=== PATIENT | male | born 1935 | race Hispanic/Latino ===

== ENCOUNTER 2016-03-24 14:28 | Emergency (ER) | payer MEDICARE ==
[~2016-03-24] VITALS: Ht 177.8 cm; Wt 59.0 kg
[2016-03-24 14:30] VITALS: BP 115/48
[2016-03-24] MEDS ORDERED: VITAMIN D400 INTLU ORAL (14:45)
[2016-03-24] MEDS ORDERED: NORCO 5-325 TA1 EAC1 ORAL (14:45)
[2016-03-24] MEDS ORDERED: SPIRONOLACTONE25 MG ORAL (14:45)
[2016-03-24] MEDS ORDERED: COMBIVENT RESPIM4 GM IH (14:45)
[2016-03-24] MEDS ORDERED: LIPITOR40 MG ORAL (14:45)
[2016-03-24] MEDS ORDERED: ASPIR 8181 MG ORAL (14:45)
[2016-03-24] MEDS ORDERED: Albuterol ud Inhalation HHN ONE ×2 (14:45→19:15)
[2016-03-24] MEDS ORDERED: FEROCON CAPSUL1 EACH PO (14:45)
[2016-03-24] MEDS ORDERED: FOLIC ACID1 MG ORAL (14:45)
[2016-03-24] MEDS ORDERED: FUROSEMIDE20 M1 ORAL (14:45)
[2016-03-24] MEDS ORDERED: COREG6.25 MG ORAL (14:45)
[2016-03-24] MEDS ORDERED: PredniSONE 20mg tab ORAL ONE (14:45)
[2016-03-24] MEDS ORDERED: ASCORBIC ACID500 MG ORAL (14:45)
[2016-03-24] MEDS ORDERED: DIGOXIN250 MCG ORAL (14:45)
[2016-03-24] MEDS ORDERED: WARFARIN SODIUM5 MG ORAL (14:45)
[2016-03-24] MEDS ORDERED: Ipratropium 0.02% Inh Soln 2.5ml UD HHN ONE (14:45)
[2016-03-24] MEDS ORDERED: FLONASE ALLERG9.9 ML NS (14:45)
[2016-03-24] MEDS ORDERED: VITAMIN D1000 UNI1 ORAL (14:45)
[2016-03-24] MEDS ORDERED: ALBUTEROL2.5 MG/3 M INH (14:45)
[2016-03-24 15:04] LABS: BASOPHILS % (AUTO) 0.4 % (0.0-2.0); EOSINOPHILS % (AUTO) 0.2 % (0.0-3.0); LYMPHOCYTES % (AUTO) 5.9 % (20.0-45.0); MEAN CORPUSCULAR HEMOGLOBIN 33.7 PG (27.0-31.0); MEAN CORPUSCULAR HGB CONC 32.4 G/DL (32.0-36.0); MEAN CORPUSCULAR VOLUME 104 FL (80-99); MEAN PLATELET VOLUME 8.9 FL (6.5-10.1); MONOCYTES % (AUTO) 11.5 % (1.0-10.0); PLATELET COUNT 207 K/UL (150-450); RED BLOOD COUNT 3.91 M/UL (4.70-6.10); RED CELL DISTRIBUTION WIDTH 11.7 % (11.6-14.8)
[2016-03-24 15:10] VITALS: BP 115/48
[2016-03-24 15:18] LABS: ALANINE AMINOTRANSFERASE 38 U/L (3-41); ALBUMIN/GLOBULIN RATIO 1.3 (1.0-2.7); ANION GAP 8 (5-15); ASPARTATE AMINO TRANSFERASE 28 U/L (5-40); CARBON DIOXIDE 37 mEQ/L (20-30); CHLORIDE 94 mEQ/L (98-107); CREATININE 1.4 mg/dL (0.7-1.2); HEMOLYSIS 6; POTASSIUM 4.3 mEQ/L (3.4-4.9); SODIUM 139 mEQ/L (135-145); TOTAL PROTEIN 6.7 g/dL (6.6-8.7); TROPONIN I < 0.30 ng/mL (<=0.30)
--- NOTE | 2016-03-24 15:19 | Emergency Room Report ---
History of Present Illness General Chief Complaint: Dyspnea/Respdistress Source: Patient Present Illness HPI This patient states that for the past day he has felt short of breath. He has had cough with sputum production. He denies fever or chills. He denies nausea or vomiting. He denies chest pain. He does have a history of coronary artery disease and COPD. Allergies: Coded Allergies: PENICILLINS (Verified Allergy, Intermediate, 03/24/16) Patient History Past Medical History: see triage record, HTN, CAD, AFib, COPD Past Surgical History: pacemaker Social History: Denies: alcohol use, drug use, smoking Reviewed Nursing Documentation: PMH: Agreed, PSxH: Agreed Nursing Documentation-PMH Hx Cardiac Problems: Yes - A-FIB Hx Hypertension: Yes Hx Pacemaker: No Hx Asthma: No Hx COPD: Yes Hx Diabetes: No Hx Cancer: No Hx Gastrointestinal Problems: No Hx Dialysis: No History Of Psychiatric Problem: No Hx Neurological Problems: No Hx Cerebrovascular Accident: No Hx Seizures: No Review of Systems All Other Systems: negative except mentioned in HPI Physical Exam Vital Signs Date Time Temp Pulse Resp B/P Pulse Ox O2 Delivery O2 Flow Rate FiO2 03/24/16 14:23 97.0 82 20 145/68 98 Room Air 03/24/16 14:55 2.0 28 Sp02 EP Interpretation: reviewed, normal General Appearance: no apparent distress, alert, GCS 15, non-toxic Head: normocephalic, atraumatic Eyes: bilateral eye PERRL, bilateral eye normal inspection ENT: hearing grossly normal, normal pharynx, no angioedema, normal voice Neck: full range of motion, supple/symm/no masses Respiratory: chest non-tender, lungs clear, normal breath sounds, speaking full sentences Cardiovascular #1: no edema, irregularly irregular Gastrointestinal: normal bowel sounds, non tender, soft, non-distended, no guarding, no rebound Rectal: deferred Musculoskeletal: back normal, gait/station normal, normal range of motion, non- tender Neurologic: alert, oriented x3, responsive, motor strength/tone normal, sensory intact, speech normal Psychiatric: judgement/insight normal, memory normal, mood/affect normal, no suicidal/homicidal ideation Skin: normal color, no rash, warm/dry, well hydrated Medical Decision Making Diagnostic Impression: Primary Impression: COPD exacerbation ER Course This patient has a history of COPD and presents with dyspnea. Lung exam was diminished by there was no wheezing. I did give the patient albuterol and Atrovent nebs and steroids. I did obtain basic laboratory workup to include CBC , CMP and cardiac enzymes. This showed leukocytosis, but is otherwise unremarkable. Chest x-ray showed cardiomegaly but no consolidation or evidence of congestive heart failure. The patient did have improvement with breathing treatments and steroids, however he continued to feel dyspneic. I also went ahead and give the patient broad-spectrum antibiotics given the leukocytosis. This is a [place] patient and he was transferred to the [place] facility at their request. Labs Test 03/24/16 14:50 White Blood Count 16.0 K/UL (4.8-10.8) Red Blood Count 3.91 M/UL (4.70-6.10) Hemoglobin 13.2 G/DL (14.2-18.0) Hematocrit 40.6 % (42.0-52.0) Mean Corpuscular Volume 104 FL (80-99) Mean Corpuscular Hemoglobin 33.7 PG (27.0-31.0) Mean Corpuscular Hemoglobin Concent 32.4 G/DL (32.0-36.0) Red Cell Distribution Width 11.7 % (11.6-14.8) Platelet Count 207 K/UL (150-450) Mean Platelet Volume 8.9 FL (6.5-10.1) Neutrophils (%) (Auto) 82.0 % (45.0-75.0) Lymphocytes (%) (Auto) 5.9 % (20.0-45.0) Monocytes (%) (Auto) 11.5 % (1.0-10.0) Eosinophils (%) (Auto) 0.2 % (0.0-3.0) Basophils (%) (Auto) 0.4 % (0.0-2.0) Sodium Level 139 mEQ/L (135-145) Potassium Level 4.3 mEQ/L (3.4-4.9) Chloride Level 94 mEQ/L (98-107) Carbon Dioxide Level 37 mEQ/L (20-30) Anion Gap 8 (5-15) Blood Urea Nitrogen 47 mg/dL (7-23) Creatinine 1.4 mg/dL (0.7-1.2) Estimat Glomerular Filtration Rate mL/min (>60) Glucose Level 107 mg/dL (74-106) Calcium Level 10.0 mg/dL (8.6-10.2) Total Bilirubin 0.9 mg/dL (0.0-1.2) Aspartate Amino Transf (AST/SGOT) 28 U/L (5-40) Alanine Aminotransferase (ALT/SGPT) 38 U/L (3-41) Alkaline Phosphatase 75 U/L (40-129) Total Creatine Kinase 37 U/L (38-174) Creatine Kinase MB 3.2 ng/mL (< 6.7) Creatine Kinase MB Relative Index 8.6 Troponin I < 0.30 ng/mL (<=0.30) Total Protein 6.7 g/dL (6.6-8.7) Albumin 3.9 g/dL (3.5-5.2) Globulin 2.8 g/dL Albumin/Globulin Ratio 1.3 (1.0-2.7) EKG Diagnostic Results Rate: normal Rhythm: other ST Segments: no acute changes Other Impression A.fib Rhythm Strip Diag. Results EP Interpretation: yes Rate: 70's Rhythm: no PVC's, no ectopy Other Impression A.fib Chest X-Ray Diagnostic Results EP Interpretation: Yes Findings: no consolidation, no effusion, no pneumothorax, no acute cardiopulmonary disease Number of Views: 1 Other Impression Cardiomegaly Last Vital Signs Date Time Temp Pulse Resp B/P Pulse Ox O2 Delivery O2 Flow Rate FiO2 03/24/16 14:56 75 24 96 Nasal Cannula 2.0 28 03/24/16 14:30 98.0 115/48 Status: improved Disposition: ER [facility] Condition: Stable ALE BROWN D.O. Mar 24, 2016 15:19
[2016-03-24 15:28] LABS: CKMB 3.2 ng/mL (< 6.7)
--- NOTE | 2016-03-24 15:39 | Diagnostic Imaging Report ---
Indication: Dyspnea Comparison: None A single view chest radiograph was obtained. Findings: Heart is enlarged. Pacemakers present. Sternotomy noted. Bones are unremarkable. Impression: No acute disease
[2016-03-24] MEDS ORDERED: NS 55ml IV ONE (16:31)
[2016-03-24 16:38] VITALS: BP 124/71
[2016-03-24 18:05] VITALS: BP_SYST 124; BP_SYST 132; BP_DIAS 53; BP_DIAS 71
[2016-03-24 19:10] VITALS: BP 103/57
[2016-03-24 19:50] VITALS: BP 103/57
== END 2016-03-24 19:50 | disposition short-term general hospital (02) ==
LOC: EDBD 14:28 → EMR 16:30
DX: J44.1 Chronic obstructive pulmonary disease with (acute) exacerbation (principal); I10 Essential (primary) hypertension; I48.91 Unspecified atrial fibrillation; Z95.0 Presence of cardiac pacemaker; I25.10 Atherosclerotic heart disease of native coronary artery without angina pectoris; Z88.0 Allergy status to penicillin
CPT/HCPCS: 36415; 71010; 80053; 82550; 82553; 84484; 85025; 93005; 94640; 94664; 96374; 99284; J0696